=== PATIENT | female | born 1965 | race Caucasian/White ===

== ENCOUNTER → 2019-11-01 13:24 | Outpatient (CLI) | payer OTHER, SELFPAY ==
[2019-11-01 13:13] VITALS: BMI 31.3
--- NOTE | 2019-11-01 13:26 | RAD_ITS ---
STUDY: X-RAY - RIGHT WRIST REASON FOR EXAM: Female, 54 years old. PAIN IN RIGHT WRIST NOT GETTING ANY BETTER. RIGHT WRIST INJURY THIS PAST AUGUST. TECHNIQUE: 3 view(s) of the wrist were obtained. COMPARISON: None. FINDINGS: There is demineralization of the radius and ulna. There is a lucency at the base of the ulnar styloid within the distal radius with surrounding callus formation consistent with likely healing nondisplaced fracture. There is degenerative arthrosis of the radiocarpal articulation. Normal distal radioulnar articulation. Normal carpal bones. Normal carpal articulations. Normal carpometacarpal articulation of the thumb. Normal second through fifth carpometacarpal articulations. Normal visualized metacarpal bones. The soft tissue structures are unremarkable. RAD/Wrist min 3 Views IMPRESSION: Demineralization with likely healing nondisplaced fracture of the distal ulna as above. Electronically Signed: David Nguyen DO at 21:53 EDT , Service support ,
== END ==
PROVIDERS: PCP Internal Medicine; Referring Provider Physician Assistant; Visit Provider Physician Assistant
DX: M25.531 Pain in right wrist (principal)
CPT/HCPCS: 73110

== ENCOUNTER 2020-05-04 20:03 | Emergency (ER) | payer OTHER, SELFPAY ==
[2019-11-01 13:13] VITALS: BMI 31.3
[2020-05-04 20:03] VITALS: BP 145/96; PULSE 57; RESP 16; TEMP 36.4; O2SAT 99; BMI 29.7
--- NOTE | 2020-05-04 20:15 | RAD_ITS ---
STUDY: X-RAY - RIGHT WRIST REASON FOR EXAM: Female, 54 years old. fall, wrist pain TECHNIQUE: 4 view(s) of the wrist were obtained. COMPARISON: None. FINDINGS: Normal visualized distal radius and ulna. Normal radiocarpal articulation. Normal distal radioulnar articulation. Normal carpal bones. Normal carpal articulations. There is degenerative arthrosis of the carpometacarpal articulation of the thumb. Normal second through fifth carpometacarpal articulations. Normal visualized metacarpal bones. The soft tissue structures are unremarkable. There is no demonstrated acute fracture. RAD/Wrist min 3 Views IMPRESSION: No definite acute or significant abnormality seen. Electronically Signed: Jethro Roy MD at 20:35 EDT , Service support ,
--- NOTE | 2020-05-04 20:17 | ED.VISSUMM ---
- ER Visit Summary Date of Service: 05/04/20 Chief Complaint: [Injury to right wrist ] History of Present Illness: The patient is a 54 F [presents to the emergency department after sustaining a fall today. 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 Patient is right-hand dominant. Patient states that she had fractured her wrist in September of last year. Patient denies any other injuries. Patient has history of high cholesterol, PSVT, and SVT.] Physical Examination: [HEENT-PERRLA, EOMI. Cranial nerves II through XII grossly intact. TMs clear. Mucous membranes moist. No adenopathy. Cardiovascular-regular rate and rhythm without murmur or ectopy Lungs-clear to auscultation, chest wall stable without crepitus or subcu emphysema Abdomen-normoactive bowel sounds, soft, nontender, no rebound or rigidity, no peritoneal signs. Extremities-intact ?4, normal range of motion, normal pulses. Right wrist-patient has tenderness in the anatomic snuffbox. Patient has tenderness over the distal radius. No obvious deformity noted. She is neurovascular intact distally. No significant ecchymosis or bruising noted.] Test Results: [X-rays of the right wrist obtained was normal. No evidence of fracture dislocation noted..] Emergency Department Course and Treatment: [Patient was placed in a thumb spica splint] Treatment Plan: [Patient will be placed in a thumb spica splint. She is instructed to ice and elevate the extremity. She is to use ibuprofen or Tylenol for discomfort. Patient to follow-up with her primary care physician or orthopedic surgeon within next 5 to 7 days.] Because she has pain in the anatomic snuffbox I cannot rule out an occult fracture of the scaphoid. Disposition: [Discharged home in stable condition] Impression: [Right wrist sprain-rule out occult scaphoid fracture] This note was generated with [employer] dictation software. It may contain incorrect words, spelling, and punctuation that were not noted in review of the chart prior to signing ED Disposition - Plan for ED Patient: Referrals: Keyana Winchester MD [Primary Care Provider] -
--- NOTE | 2020-05-04 20:44 | ED.DEP ---
ED Disposition - Plan for ED Patient: Instructions: ED Sprain Wrist Referrals: Foster Brunner DO [STAFF PHYSICIAN] - 5-7 Days Keyana Winchester MD [Primary Care Provider] - 5-7 Days
[2020-05-04 21:02] VITALS: PULSE 55; RESP 15; O2SAT 97
== END 2020-05-04 21:02 | disposition home or self-care (01) ==
LOC: ED 20:31
PROVIDERS: Emergency Provider Emergency Medicine; PCP Internal Medicine
DX: S63.501A Unspecified sprain of right wrist, initial encounter (principal); W19.XXXA Unspecified fall, initial encounter; Y93.9 Activity, unspecified; Y92.008 Other place in unspecified non-institutional (private) residence as the place of occurrence of the external cause; Y99.9 Unspecified external cause status; I47.1 Supraventricular tachycardia; E78.00 Pure hypercholesterolemia, unspecified
CPT/HCPCS: 73110; 99283

== ENCOUNTER → 2020-05-16 15:26 | Outpatient (CLI) | payer OTHER, SELFPAY ==
[2020-05-16 14:36] VITALS: BMI 29.7
--- NOTE | 2020-05-16 15:28 | RAD_ITS ---
HISTORY: fell 2 weeks ago, hx of fx ADDITIONAL HISTORY: None provided. EXAMINATION/TECHNIQUE: XR Wrist Min 3 Views Right Number of images including paperwork: 3 COMPARISON: 05/04/2020 and 11/01/2019 FINDINGS: BONES: Slight irregularity of the distal radial articular surface in the region of lucency seen on forearm radiographs, no distinct fracture line seen on wrist radiographs. JOINTS: No subluxation. SOFT TISSUES: No distinct foreign body. Soft tissue swelling. RAD/Wrist min 3 Views IMPRESSION: Slight irregularity of the distal radial articular surface without distinct fracture line. Findings could represent posttraumatic change but subtle nondisplaced fracture is difficult to exclude. at 0237 Reported and signed by: Aminah Short MD Electronically Signed: Aminah Short MD at 2:37 EDT Tel , Service support ,
--- NOTE | 2020-05-16 15:28 | RAD_ITS ---
HISTORY: fell 2 weeks ago, hx of fx ADDITIONAL HISTORY: None provided. EXAMINATION/TECHNIQUE: XR Forearm 2 Views Right Number of images including paperwork: 2 COMPARISON: 05/04/2020 and 11/01/2019 wrist radiographs. No previous forearm radiographs. FINDINGS: BONES: Lucency noted in the distal radial articular surface toward the ulnar aspect on the AP view, not well seen on corresponding wrist radiographs. JOINTS: No subluxation. SOFT TISSUES: No distinct foreign body. RAD/Forearm 2 Views IMPRESSION: Nondisplaced intra-articular right distal radius fracture of uncertain chronicity. at 0235 Reported and signed by: Aminah Short MD Electronically Signed: Aminah Short MD at 2:35 EDT Tel , Service support ,
== END ==
PROVIDERS: PCP Internal Medicine; Referring Provider Nurse Practitioner Family; Visit Provider Nurse Practitioner Family
DX: S69.91XA Unspecified injury of right wrist, hand and finger(s), initial encounter (principal); S59.911A Unspecified injury of right forearm, initial encounter; X58.XXXA Exposure to other specified factors, initial encounter; Y93.9 Activity, unspecified; Y92.9 Unspecified place or not applicable; Y99.9 Unspecified external cause status
CPT/HCPCS: 73090; 73110

== ENCOUNTER → 2020-06-16 | Outpatient (CLI) | payer OTHER, SELFPAY ==
[2020-06-16 08:38] VITALS: BMI 28.6
[2020-06-20 06:24] LABS: HPV APTIMA, High Risk Negative (Negative)
== END | disposition home or self-care (01) ==
LOC: LABSPEC 13:54
PROVIDERS: PCP Internal Medicine; Referring Provider Obstetrics & Gynecology; Visit Provider Obstetrics & Gynecology
DX: Z12.4 Encounter for screening for malignant neoplasm of cervix (principal)
CPT/HCPCS: 87624; 88175; G0145

== ENCOUNTER → 2020-06-23 11:46 | Outpatient (CLI) | payer OTHER, SELFPAY ==
[2020-06-16 08:38] VITALS: BMI 28.6
--- NOTE | 2020-06-23 11:47 | BI_ITS ---
MAMMOGRAPHY - BILATERAL SCREENING REASON FOR EXAM: Female, 54 years old. Routine annual screening examination. PERTINENT HISTORY: Non-contributory. TECHNIQUE: Digital bilateral breast bronson (3D mammographic acquisition) in the CC and MLO projections. 2-D mediolateral oblique (MLO) and craniocaudad (CC) views of both breasts were obtained. CAD: Full Field Digital Mammography with Computer Added Detection was performed. COMPARISON: Comparison is made with prior study dated 08/02/2017. FINDINGS: Breast Composition: There are scattered areas of fibroglandular density. There are no dominant masses or suspicious calcifications. No other significant abnormalities are identified. There has been no significant change since the prior study. BI/SCREEN MAMM (CAD) W/BRONSON BILAT IMPRESSION: Stable bilateral screening mammogram. Yearly follow-up mammogram recommended. (A) ASSESSMENT CATEGORY: BIRADS Category 1: Negative. A letter regarding these results will be sent to the patient by the facility within 30 days. Approximately 10% of breast cancers are not detected by mammography. A normal mammogram should not delay biopsy of a clinically suspicious abnormality. [id number] Electronically Signed: Randell Rock, at 13:48 EST , Service support ,
== END ==
PROVIDERS: PCP Internal Medicine; Referring Provider Obstetrics & Gynecology; Visit Provider Obstetrics & Gynecology
DX: Z12.31 Encounter for screening mammogram for malignant neoplasm of breast (principal)
CPT/HCPCS: 77063; 77067

== ENCOUNTER → 2020-10-09 09:30 | Outpatient (CLI) | payer OTHER, SELFPAY ==
[2020-10-02 10:03] VITALS: BMI 28.8
[2020-10-09 11:28] LABS: AST(SGOT) 13 U/L (15-37); Alanine Aminotransfer ALT/SGPT 15 U/L (13-56); Albumin, Serum 3.7 g/dL (3.2-5.0); Alkaline Phosphatase 86 U/L (45-117); Cholesterol 238 mg/dL (200); Globulin 3.5 g/dL (2.2-4.2); High Density Lipoprotein 77 mg/dL; Protein, Total 7.2 g/dL (6.4-8.2); Triglycerides 90 mg/dL; Very Low Density Lipoprotein 18 mg/dL (5-40)
== END ==
PROVIDERS: PCP Internal Medicine; Referring Provider Internal Medicine Cardiovascular Disease; Visit Provider Internal Medicine Cardiovascular Disease
DX: E78.5 Hyperlipidemia, unspecified (principal); I34.1 Nonrheumatic mitral (valve) prolapse; I47.1 Supraventricular tachycardia
CPT/HCPCS: 36415; 80061; 80076

== ENCOUNTER → 2021-01-07 08:24 | Outpatient (CLI) | payer OTHER, SELFPAY ==
[2020-10-02 10:03] VITALS: BMI 28.8
[2021-01-07 10:48] LABS: AST(SGOT) 13 U/L (15-37); Alanine Aminotransfer ALT/SGPT 15 U/L (13-56); Albumin, Serum 3.5 g/dL (3.2-5.0); Alkaline Phosphatase 87 U/L (45-117); Bilirubin, Direct 0.13 mg/dL (0.00-0.30); Cholesterol 197 mg/dL (200); Globulin 3.1 g/dL (2.2-4.2); High Density Lipoprotein 77 mg/dL; Protein, Total 6.6 g/dL (6.4-8.2); Triglycerides 60 mg/dL; Very Low Density Lipoprotein 12 mg/dL (5-40)
== END ==
PROVIDERS: PCP Internal Medicine; Referring Provider Internal Medicine Cardiovascular Disease; Visit Provider Internal Medicine Cardiovascular Disease
DX: E78.5 Hyperlipidemia, unspecified (principal)
CPT/HCPCS: 36415; 80061; 80076

== ENCOUNTER → 2021-07-02 10:29 | Outpatient (CLI) | payer OTHER, SELFPAY ==
[2021-07-02 12:19] LABS: Absolute Lymphocyte Count 1.48 X10^3/uL (0.83-4.51); Absolute Neutrophil Count 2.5 X10^3/uL (2.0-7.7); Basophil# 0.06 X10^3/uL; Basophil% 1.4 % (0-1); Eosinophil# 0.07 X10^3/uL; Eosinophils% 1.6 % (0-5); Hematocrit 41.3 % (37-47); Hemoglobin 13.5 g/dL (12.0-15.0); Lymphocyte # 1.48 X10^3/ul (0.83-4.51); Lymphocyte % 33.9 % (19-41); Mean Corp Hgb Conc 32.7 g/dL (32-36); Mean Corpuscular Hgb 29.7 pg (27.0-32.0); Mean Platelet Vol. 10.5 fl (6.2-12.0); Monocyte# 0.28 X10^3/uL; Monocyte% 6.4 % (0-10); NRBC Flagged by Analyzer 0 % (0-5); Neutrophil # 2.46 X10^3/uL (2.7-7.7); Neutrophil % 56.2 % (47-70); Platelet Count 225 K/mm3 (150-450); RBC Distribution Width CV 12.8 % (11.6-14.6); RBC Distribution Width SD 42.8 fl (35.1-43.9); Red Blood Count 4.54 M/mm3 (4.2-5.4); White Blood Count 4.4 K/mm3 (4.4-11.0)
[2021-07-02 12:35] LABS: Vitamin D,25 Hydroxy 57.1 ng/mL
[2021-07-02 12:48] LABS: ALB/GLOB Ratio 0.9 RATIO (0.9-2.4); AST(SGOT) 15 U/L (15-37); Alanine Aminotransfer ALT/SGPT 16 U/L (13-56); Albumin, Serum 3.5 g/dL (3.2-5.0); Alkaline Phosphatase 86 U/L (45-117); Anion Gap 6 (5-15); BUN 15 mg/dL (7-18); BUN/Creat Ratio 19.3 RATIO (10-20); Calcium,Total 9.5 mg/dL (8.5-10.1); Chloride 106 mmol/L (98-107); Cholesterol 229 mg/dL (200); Creatinine, Serum 0.78 mg/dL (0.55-1.02); EST Glomerular Filtration Rate 81 mL/min (>60); Est Glom Filt Rate - Afr Amer 98 mL/min (>60); Globulin 3.8 g/dL (2.2-4.2); Glucose 99 mg/dL (74-106); High Density Lipoprotein 81 mg/dL; Protein, Total 7.3 g/dL (6.4-8.2); Sodium Level 140 mmol/L (136-145); Thyroid Stim Hormone (TSH) 2.55 uIU/mL (0.358-3.74); Triglycerides 66 mg/dL; Very Low Density Lipoprotein 13 mg/dL (5-40)
== END ==
LOC: BIMLAB 10:30
PROVIDERS: PCP Internal Medicine; Referring Provider Physician Assistant; Visit Provider Physician Assistant
DX: Z00.00 Encounter for general adult medical examination without abnormal findings (principal); E78.5 Hyperlipidemia, unspecified; I47.1 Supraventricular tachycardia; E55.9 Vitamin D deficiency, unspecified; Z13.220 Encounter for screening for lipoid disorders; Z13.29 Encounter for screening for other suspected endocrine disorder
CPT/HCPCS: 36415; 80053; 80061; 82306; 84443; 85025

== ENCOUNTER 2021-08-26 08:44 | Outpatient (CLI) | payer OTHER, SELFPAY ==
--- NOTE | 2021-08-26 08:46 | BI_ITS ---
MAMMOGRAPHY - BILATERAL SCREENING REASON FOR EXAM: Female, 55 years old. Routine annual screening examination. PERTINENT HISTORY: Non-contributory. TECHNIQUE: Digital bilateral breast bronson (3D mammographic acquisition) in the CC and MLO projections. 2-D mediolateral oblique (MLO) and craniocaudad (CC) views of both breasts were obtained. CAD: Full Field Digital Mammography with Computer Added Detection was performed. COMPARISON: Comparison is made with prior study dated 06/23/2020 and 08/02/2017 FINDINGS: Breast Composition: There are scattered areas of fibroglandular density. There are no dominant masses or suspicious calcifications. Stable small benign-appearing bilateral axillary lymph nodes. No other significant abnormalities are identified. There has been no significant change since the prior study. BI/SCRN MAMM (CAD)W/BRONSON BILAT IMPRESSION: Stable bilateral screening mammogram. Yearly follow-up mammogram recommended. (A) ASSESSMENT CATEGORY: BIRADS Category 2: Benign. A letter regarding these results will be sent to the patient by the facility within 30 days. Approximately 10% of breast cancers are not detected by mammography. A normal mammogram should not delay biopsy of a clinically suspicious abnormality. [id number] Electronically Signed: Randell Rock MD at 9:34 EST , Service support ,
== END 2021-08-26 23:59 | disposition short-term general hospital (02) ==
LOC: OPBI 08:44
PROVIDERS: PCP Internal Medicine; Referring Provider Physician Assistant; Visit Provider Physician Assistant
DX: Z12.31 Encounter for screening mammogram for malignant neoplasm of breast (principal)
CPT/HCPCS: 77063; 77067

== ENCOUNTER 2021-09-01 10:49 | Outpatient (CLI) | payer OTHER, SELFPAY ==
--- NOTE | 2021-09-01 10:53 | US_ITS ---
STUDY: ULTRASOUND OF THE FEMALE PELVIS - COMPLETE REASON FOR EXAM: Female, 55 years old. Pelvic pain. History of fibroids. LMP: The patient is postmenopausal. TECHNIQUE: Transabdominal and Transvaginal TECHNICAL QUALITY: Adequate. COMPARISON: Comparison is made with prior study dated 08/08/2017. FINDINGS: The uterus is anteverted and is in a midline position. The uterus measures 7.1 cm x 7.8 cm x 2.7 cm. Normal uterine cervix. The endometrium measures 4 mm in thickness, and is hyperechoic. There is no demonstrated endometrial mass. Multiple fibroids are seen. A pedunculated fibroid is seen in the left side of the body of the uterus measuring 4.5 signed by 5 cm x 4.8 cm. I.U.D. - The patient does not have an I.U.D. The right ovary is non-visualized. There is a 1.8 cm x 1.5 cm x 1.8 cm solid nodule in the right adnexal region. A small amount of free fluid is seen adjacent to it. The left ovary is non-visualized. There is a moderate amount of fluid in the cul-de-sac. US/Transvaginal Non- IMPRESSION: Multiple uterine fibroids. There is a 1.8 signed by 1.5 cm by 1.8 cm solid nodule seen in the right adnexa. Small amount of fluid is seen surrounding it. Correlation with the CT scan of the pelvis is recommended. Electronically Signed: Randell Rock MD at 12:29 EST , Service support ,
--- NOTE | 2021-09-01 10:53 | US_ITS ---
STUDY: ULTRASOUND OF THE FEMALE PELVIS - COMPLETE REASON FOR EXAM: Female, 55 years old. Pelvic pain. History of fibroids. LMP: The patient is postmenopausal. TECHNIQUE: Transabdominal and Transvaginal TECHNICAL QUALITY: Adequate. COMPARISON: Comparison is made with prior study dated 08/08/2017. FINDINGS: The uterus is anteverted and is in a midline position. The uterus measures 7.1 cm x 7.8 cm x 2.7 cm. Normal uterine cervix. The endometrium measures 4 mm in thickness, and is hyperechoic. There is no demonstrated endometrial mass. Multiple fibroids are seen. A pedunculated fibroid is seen in the left side of the body of the uterus measuring 4.5 signed by 5 cm x 4.8 cm. I.U.D. - The patient does not have an I.U.D. The right ovary is non-visualized. There is a 1.8 cm x 1.5 cm x 1.8 cm solid nodule in the right adnexal region. A small amount of free fluid is seen adjacent to it. The left ovary is non-visualized. There is a moderate amount of fluid in the cul-de-sac. US/Pelvic (Non ) IMPRESSION: Multiple uterine fibroids. There is a 1.8 signed by 1.5 cm by 1.8 cm solid nodule seen in the right adnexa. Small amount of fluid is seen surrounding it. Correlation with the CT scan of the pelvis is recommended. Electronically Signed: Randell Rock MD at 12:29 EST , Service support ,
== END 2021-09-01 23:59 | disposition short-term general hospital (02) ==
PROVIDERS: PCP Internal Medicine; Referring Provider Obstetrics & Gynecology; Visit Provider Obstetrics & Gynecology
DX: D25.9 Leiomyoma of uterus, unspecified (principal)
CPT/HCPCS: 76830; 76856

== ENCOUNTER 2021-10-12 11:39 | Outpatient (CLI) | payer OTHER, SELFPAY ==
--- NOTE | 2021-10-12 19:34 | STRESSREP_ITS ---
Stress Test Report Date: 10-12-2021 Procedure: Exercise tolerance test Indications: Chest pain; PSVT; MVP; hyperlipidemia Consent: Per the patient Procedure: The patient exercised on a Kaushik protocol for 10-minute completing Stage III and 1 minute of Stage IV achieving a peak heart rate of 169 bpm (103% predicted maximal heart rate) with a peak blood pressure 166/82 mmHg and a peak MET capacity of approximately 13 MET's. The baseline ECG demonstrated normal sinus rhythm. The peak exercise ECG demonstrated somatic/motion artifact with no obvious ECG changes. There was an isolated PVC during exercise. The functional capacity was considered good. The patient had no complaint of chest discomfort during exercise or recovery. The examination was discontinued secondary to dyspnea. Impression: 1. Technically adequate (percent predicted maximal heart rate greater than 85%) exercise tolerance test 2. Peak exercise ECG with somatic/motion artifact with no obvious ECG changes 3. There was an isolated PVC during exercise This note was generated with rumr: turn off the lightsation software. It may contain incorrect words, spelling, and punctuation that were not noted in checking the note before signing.
== END 2021-10-12 23:59 | disposition home or self-care (01) ==
PROVIDERS: PCP Internal Medicine; Referring Provider Internal Medicine Cardiovascular Disease; Visit Provider Internal Medicine Cardiovascular Disease
DX: R07.9 Chest pain, unspecified (principal)
CPT/HCPCS: 93017

== ENCOUNTER 2021-11-06 07:49 | Outpatient (CLI) | payer OTHER, SELFPAY ==
--- NOTE | 2021-11-06 07:54 | US_ITS ---
STUDY: ULTRASOUND OF THE FEMALE PELVIS - COMPLETE REASON FOR EXAM: Female, 56 years old. f/u fibroid uterus TECHNIQUE: Endovaginal. Transvaginal US was obtained to better visualized the ovaries. COMPARISON: 09.01.21 FINDINGS: The uterus is anteverted and is in a midline position. The uterus measures 6.7 x 4 point cm. Normal uterine cervix. The endometrium measures 4.2 mm in thickness, and is hyperechoic. There is no demonstrated endometrial mass. Multiple fibroids in the uterus. There are exophytic as well. The fibroids measure 52 x 54 x 51 mm in the lower uterine segment there calcifications measuring 9 mm. I.U.D. - The patient does not have an I.U.D. The right ovary is visualized. The right ovary measures 2 x 1.6 cm. There is no right ovarian cyst or ovarian mass. There is visualized right adnexal calcification measuring 22 x 20 mm. There is normal arterial and normal venous vascularity. The left ovary is visualized. The left ovary measures 1.8 x 1.2 cm. There is no left ovarian cyst or ovarian mass. There is no visualized left adnexal mass or complex lesion. There is normal arterial and normal venous vascularity. There is minimal fluid in the cul-de-sac. Urinary bladder volume is 57 cc. US/Pelvic (Non ) IMPRESSION: Fibroid uterus. There is minimal fluid in the cul-de-sac. Stable right adnexal calcification. Electronically Signed: Enoch Lauren MD at 20:21 EDT ,
--- NOTE | 2021-11-06 07:54 | US_ITS ---
STUDY: ULTRASOUND OF THE FEMALE PELVIS - COMPLETE REASON FOR EXAM: Female, 56 years old. f/u fibroid uterus TECHNIQUE: Endovaginal. Transvaginal US was obtained to better visualized the ovaries. COMPARISON: 09.01.21 FINDINGS: The uterus is anteverted and is in a midline position. The uterus measures 6.7 x 4 point cm. Normal uterine cervix. The endometrium measures 4.2 mm in thickness, and is hyperechoic. There is no demonstrated endometrial mass. Multiple fibroids in the uterus. There are exophytic as well. The fibroids measure 52 x 54 x 51 mm in the lower uterine segment there calcifications measuring 9 mm. I.U.D. - The patient does not have an I.U.D. The right ovary is visualized. The right ovary measures 2 x 1.6 cm. There is no right ovarian cyst or ovarian mass. There is visualized right adnexal calcification measuring 22 x 20 mm. There is normal arterial and normal venous vascularity. The left ovary is visualized. The left ovary measures 1.8 x 1.2 cm. There is no left ovarian cyst or ovarian mass. There is no visualized left adnexal mass or complex lesion. There is normal arterial and normal venous vascularity. There is minimal fluid in the cul-de-sac. Urinary bladder volume is 57 cc. US/Transvaginal Non- IMPRESSION: Fibroid uterus. There is minimal fluid in the cul-de-sac. Stable right adnexal calcification. Electronically Signed: Enoch Lauren MD at 20:21 EDT ,
== END 2021-11-06 23:59 | disposition home or self-care (01) ==
PROVIDERS: PCP Internal Medicine; Referring Provider Obstetrics & Gynecology; Visit Provider Obstetrics & Gynecology
DX: D25.9 Leiomyoma of uterus, unspecified (principal); R93.89 Abnormal findings on diagnostic imaging of other specified body structures
CPT/HCPCS: 76830; 76856

== ENCOUNTER → 2022-07-01 | Outpatient (CLI) | payer OTHER, SELFPAY ==
[2022-07-01 12:34] LABS: Absolute Lymphocyte Count 2.04 X10^3/uL (0.83-4.51); Basophil# 0.06 X10^3/uL; Basophil% 1.3 % (0-1); Eosinophil# 0.08 X10^3/uL; Eosinophils% 1.8 % (0-5); Hemoglobin 13.1 g/dL (12.0-15.0); Lymphocyte # 2.04 X10^3/ul (0.83-4.51); Lymphocyte % 45.5 % (19-41); Mean Corp Hgb Conc 32.8 g/dL (32-36); Mean Corpuscular Hgb 30.1 pg (27.0-32.0); Mean Platelet Vol. 10.5 fl (6.2-12.0); Monocyte# 0.31 X10^3/uL; Monocyte% 6.9 % (0-10); NRBC Flagged by Analyzer 0 % (0-5); Neutrophil # 1.98 X10^3/uL (2.7-7.7); Neutrophil % 44.3 % (47-70); Platelet Count 214 K/mm3 (150-450); RBC Distribution Width CV 12.5 % (11.6-14.6); Red Blood Count 4.35 M/mm3 (4.2-5.4); White Blood Count 4.5 K/mm3 (4.4-11.0)
[2022-07-01 12:59] LABS: ALB/GLOB Ratio 1.1 RATIO (0.9-2.4); AST(SGOT) 11 U/L (15-37); Alanine Aminotransfer ALT/SGPT 15 U/L (13-56); Albumin, Serum 3.6 g/dL (3.2-5.0); Alkaline Phosphatase 85 U/L (45-117); Anion Gap 5 (5-15); BUN 13 mg/dL (7-18); BUN/Creat Ratio 16.2 RATIO (10-20); Calcium,Total 9.6 mg/dL (8.5-10.1); Chloride 108 mmol/L (98-107); Cholesterol 235 mg/dL (200); EST Glomerular Filtration Rate 78 mL/min (>60); Est Glom Filt Rate - Afr Amer 95 mL/min (>60); Globulin 3.4 g/dL (2.2-4.2); Glucose 94 mg/dL (74-106); High Density Lipoprotein 79 mg/dL; Potassium 4.8 mmol/L (3.5-5.1); Sodium Level 142 mmol/L (136-145); Triglycerides 92 mg/dL; Very Low Density Lipoprotein 18 mg/dL (5-40)
== END | disposition home or self-care (01) ==
LOC: BIMLAB 09:20
PROVIDERS: PCP Internal Medicine; Referring Provider Internal Medicine; Visit Provider Internal Medicine
DX: Z00.00 Encounter for general adult medical examination without abnormal findings (principal)
CPT/HCPCS: 36415; 80053; 80061; 85025

== ENCOUNTER → 2023-07-06 | Outpatient (CLI) | payer OTHER, SELFPAY ==
--- NOTE | 2023-07-06 10:44 | RAD_ITS ---
INDICATION: Bilateral Hip Pain EXAMINATION/TECHNIQUE: X-RAY - XR Hips Bilateral with Pelvis when performed; 2 Views COMPARISON: FINDINGS: PELVIC BONES: No displaced fracture, destructive or sclerotic lesions. Note that overlapping bowel shadows may however obscure fine detail. Sacroiliac joints are unremarkable. No widening of the pubic symphysis. HIPS: No acute abnormalities. Soft tissue calcifications seen just cephalad to the right greater trochanter consistent with probable chronic trochanteric bursitis. The articular structures are unremarkable. No displaced fracture seen in this frontal view. SOFT TISSUES: No soft tissue swelling or gas. RAD/Hips B/L min 2 views w/ Pelvis IMPRESSION: No acute fracture or dislocation. Findings consistent with chronic right trochanteric bursitis. Electronically Signed: Jethro Roy MD at 22:59 EST ,
[2023-07-06 12:37] LABS: Absolute Lymphocyte Count 1.54 X10^3/uL (0.83-4.51); Absolute Neutrophil Count 2.2 X10^3/uL (2.0-7.7); Basophil# 0.06 X10^3/uL; Basophil% 1.4 % (0-1); Eosinophil# 0.06 X10^3/uL; Eosinophils% 1.4 % (0-5); Hematocrit 38.8 % (37-47); Hemoglobin 12.7 g/dL (12.0-15.0); Lymphocyte # 1.54 X10^3/ul (0.83-4.51); Lymphocyte % 36.7 % (19-41); Mean Corp Hgb Conc 32.7 g/dL (32-36); Mean Corpuscular Volume 91.5 fL (81-99); Mean Platelet Vol. 10.4 fl (6.2-12.0); Monocyte# 0.35 X10^3/uL; Monocyte% 8.3 % (0-10); NRBC Flagged by Analyzer 0 % (0-5); Neutrophil # 2.18 X10^3/uL (2.7-7.7); Platelet Count 230 K/mm3 (150-450); Red Blood Count 4.24 M/mm3 (4.2-5.4); White Blood Count 4.2 K/mm3 (4.4-11.0)
[2023-07-06 12:59] LABS: ALB/GLOB Ratio 1.1 RATIO (0.9-2.4); AST(SGOT) 14 U/L (15-37); Alanine Aminotransfer ALT/SGPT 12 U/L (13-56); Albumin, Serum 3.6 g/dL (3.2-5.0); Alkaline Phosphatase 84 U/L (45-117); Anion Gap 3 (5-15); BUN 16 mg/dL (7-18); BUN/Creat Ratio 21.4 RATIO (10-20); Calcium,Total 9.3 mg/dL (8.5-10.1); Chloride 110 mmol/L (98-107); Cholesterol 224 mg/dL (200); Creatinine, Serum 0.75 mg/dL (0.55-1.02); EST Glomerular Filtration Rate 84 mL/min (>60); Est Glom Filt Rate - Afr Amer 102 mL/min (>60); Globulin 3.3 g/dL (2.2-4.2); Glucose 101 mg/dL (74-106); High Density Lipoprotein 79 mg/dL; Potassium 3.9 mmol/L (3.5-5.1); Protein, Total 6.9 g/dL (6.4-8.2); Sodium Level 141 mmol/L (136-145); Triglycerides 86 mg/dL; Very Low Density Lipoprotein 17 mg/dL (5-40)
== END | disposition home or self-care (01) ==
PROVIDERS: PCP Internal Medicine; Referring Provider Internal Medicine; Visit Provider Internal Medicine
DX: Z00.00 Encounter for general adult medical examination without abnormal findings (principal); M25.551 Pain in right hip; M25.552 Pain in left hip
CPT/HCPCS: 36415; 73521; 80053; 80061; 85025

== ENCOUNTER 2023-10-25 10:52 | Outpatient (CLI) | payer OTHER, SELFPAY ==
--- OUTSIDE RECORDS SUMMARY | 2023-10-25 11:24 | XMS RPT_ITS | CCD ---
Author Name Unknown Address [address] [place] [address] Organization [facility] Care Team Providers Care Nutrition Services Manager Name Role Phone Trinity Curtis Unavailable Unavailable Rylee Winchester Unavailable Unavailable Medications Completed/Discontinued Medications Medication Drug Class(es) Dates Sig (Normalized) Sig (Original) loratadine 10 mg oral capsule (1 source) Start: 02-07-2019 take 1 capsule by mouth once daily as needed Loratadine 10 MG Oral Capsule TAKE 1 CAPSULE Daily as needed for itching Quantity: 10 Refills: 0 Trinity Curtis PA-C Start : 07-Feb-2019 Active 24 hr metoprolol succinate 25 mg extended release oral tablet (1 source) beta-Adrenergic Yessi Start: 08-02-2017 take 1 tablet by mouth once daily Metoprolol Succinate ER 25 MG Oral Tablet Extended Release 24 Hour TAKE 1 TABLET EVERY DAY Quantity: 30 Refills: 0 Start : 02-Aug-2017 Active predniSONE 10 mg oral tablet (1 source) Start: 02-07-2019 take 4 tablets by mouth once daily, then take 3 tablets by mouth once daily, then take 2 tablets by mouth once daily, then take 1 tablet by mouth once daily predniSONE 10 MG Oral Tablet 4 tablets once a day for 3 days, take 3 tablets once a day for 3 days, then 2 tablets once a day for 3 days, then 1 tablet once a day for 3 Quantity: 30 Refills: 0 Trinity Curtis PA-C Start : 07-Feb-2019 Active Problems Problem Classification Problem Date Documented Da te Episodic/Chronic Allergic reactions (1 source) Contact dermatitis due to plants, except food; Translations: [Contact dermatitis due to plants, except food, unspecified contact dermatitis type] Episodic Results Test Name Value Interpretation Reference Range Facil ity Vital Signs Date Time Vital Sign Value Performing Clinician Faci lity 02-07-2019 20:17-0400 Body Temperature 97.7 [degF] Trinity Curtis [facility] Work Phone: 02-07-2019 20:17-0400 Body weight 88.45 kg Trinity Curtis [facility] Work Phone: 02-07-2019 20:17-0400 BP Diastolic 85 mm[Hg] Trinity Curtis [facility] Work Phone: 02-07-2019 20:17-0400 BP Systolic 134 mm[Hg] Trinity Curtis [facility] Work Phone: 02-07-2019 20:17-0400 Pulse (Heart Rate) 60 /min Trinity Curtis [facility] Work Phone: 02-07-2019 20:17-0400 Pulse Oximetry 97 % Trinity Curtis [facility] Work Phone: 02-07-2019 20:17-0400 Respiratory Rate 14 /min Trinity Curtis [facility] Work Phone: 02-07-2019 20:17-0400 0 1 Trinity Curtis [facility] Work Phone: Procedures Date Procedure Procedure Detail Performing Clinician Start: 02-07-2019 Follow-up visit Social History Date Type Detail Facility NEGATED: Highlighted row - - [facility] Work Phone: Functional Status Date Assessment Result Facility NEGATED: Highlighted row Functional performance Functional status health issues are not documented Disease [facility] Work Phone: Mental Status Date Assessment Result Facility NEGATED: Highlighted row Cognitive function [Interpretation] Cognitive status health issues are not documented Disease [facility] Work Phone: Progress note 08-16-2021 Note Date & Type Note Facility 08-16-2021 Note HNO ID: [id number] Author: Manny Fletcher APRN.[facility] Service: ? Author Type: Nurse Practitioner Type: Progress Notes Filed: 08/16/2021 11:20 AM Note Text: Subjective HPI Nontoxic-appearing female presents urgent care chief complaint COVID-19 concerns. Duration of symptoms 3 days. Associated symptoms cough fever nasal congestion. Patient states symptoms are very mild. Patient states she was in direct contact with individual who tested positive for COVID-19. States that she was wearing masks the other individual was not. Length of exposure less than 15 minutes. Patient denies history of COVID-19. Is not vaccinated. Has not used any OTC medications used. Denies any high fever productive cough chest pain shortness of breath pleuritic pain hemoptysis nausea vomiting abdominal pain headaches dizziness change in bowel or bladder habits. Past medical history prescription medication use allergies reviewed. .Patient presents with: Exposure: x 3 days, slight cough, fever and nasal congestion PAST MEDICAL HISTORY Diagnosis Date - High cholesterol - NONE PAST SURGICAL HISTORY Procedure Laterality Date - NONE ALLERGIES Patient has no known allergies. MEDICATIONS metoprolol succinate ER (TOPROL XL) 25 mg 24 hr tablet Take 1 (ONE) TABLET BY MOUTH EVERY DAY doxycycline hyclate (VIBRAMYCIN) 100 mg capsule Take 100 mg by mouth twice daily. cephALEXin (KEFLEX) 500 mg capsule Take 500 mg by mouth three times daily. predniSONE 10 mg tablet Take 4 tabs daily for 3 days, then 2 tabs daily for 3 days, then 1 tab daily for 3 days with food. FAMILY HISTORY Problem Relation Age of Onset - Cancer Mother lung - Cancer Father throat - COPD Maternal Grandfather - Heart Paternal Grandmother [place] - Heart Father Murmur Social History Tobacco Use - Smoking status: Never Smoker - Smokeless tobacco: Never Used Substance Use Topics - Alcohol use: Yes Comment: rare - Drug use: No BP 124/80 Pulse 70 Temp 36.7 ?C (98.1 ?F) Resp 16 Wt 83.9 kg (185 lb) LMP 12/17/2010 SpO2 99% Review of Systems Constitutional: Positive for malaise/fatigue. Negative for chills and fever. HENT: Positive for congestion. Negative for ear discharge, ear pain, sinus pain and sore throat. Eyes: Negative for blurred vision, pain, discharge and redness. Respiratory: Positive for cough. Negative for hemoptysis, sputum production, shortness of breath, wheezing and stridor. Cardiovascular: Negative for chest pain. Gastrointestinal: Negative for abdominal pain, diarrhea, nausea and vomiting. Musculoskeletal: Positive for myalgias. Skin: Negative for itching and rash. Neurological: Negative for dizziness and headaches. Objective Physical Exam Constitutional: General: She is not in acute distress. Appearance: She is not diaphoretic. HENT: Head: Normocephalic. Nose: Congestion present. Mouth/Throat: Mouth: Mucous membranes are moist. Pharynx: Oropharynx is clear. No oropharyngeal exudate or posterior oropharyngeal erythema. Eyes: Conjunctiva/sclera: Conjunctivae normal. Pupils: Pupils are equal, round, and reactive to light. Cardiovascular: Rate and Rhythm: Normal rate and regular rhythm. Heart sounds: Normal heart sounds. Pulmonary: Effort: Pulmonary effort is normal. No tachypnea, accessory muscle usage or respiratory distress. Breath sounds: Normal breath sounds. No stridor. Abdominal: Palpations: Abdomen is soft. Tenderness: There is no abdominal tenderness. Musculoskeletal: Cervical back: Normal range of motion and neck supple. No rigidity or tenderness. Lymphadenopathy: Cervical: No cervical adenopathy. Skin: General: Skin is warm and dry. Neurological: Mental Status: She is alert and oriented to person, place, and time. ASSESSMENT/PLAN: 1. Viral illness - ICD9: 079.99, ICD10: B34.9 - COVID WITH FLUA+B, ROUTINE COVID-19 test ordered results pending alternative diagnosis discussed home quarantining recommended. Patient was educated on supportive therapies. Patient will follow up with primary care provider as needed. Patient was instructed to immediately proceed to emergency room for any new, worsening, or symptoms lasting longer than anticipated. The patient's clinical presentation is otherwise unremarkable at this time. Based on exam and clinical finding, the patient is stable for discharge. Plan of care was discussed with patient. Patient verbalizes understanding and agrees to plan of care. This note was generated using ZENT software. It may contain errors in wording, punctuation, or spelling. Manny Fletcher APRN.[facility] Summary Purpose Family History No Family History Records FoundNo Family History Records Found Advance Directives No Advanced Directives Records FoundNo Advanced Directives Records Found Additional Source Comments INFORMATION SOURCE (unrecogn ized section and content) DATE CREATED AUTHOR AUTHOR'S ORGANIZ ATANTHONY 11/12/2021 [facility] FOR RECORDS PERTAINING TO PATIENTS WHO ARE OR HAVE BEEN ENROLLED IN A CHEMICAL DEPENDENCY/SUBSTANCEABUSE PROGRAM, SOME INFORMATION MAY BE OMITTED. This clinical summary was aggregated from multiple sources. Caution should be exercised in using it in the provision of clinical care. This summary normalizes information from multiple sources, and as a consequence, information in this document may materially change the coding, format and clinical context of patient data. In addition, data may be omitted in some cases. CLINICAL DECISIONS SHOULD BE BASED ON THE PRIMARY CLINICAL RECORDS. [facility] [employer] provides no warranty or guarantee of the accuracy or completeness of information in this document.
== END 2023-10-25 23:59 | disposition home or self-care (01) ==
LOC: BIMLAB 10:52
PROVIDERS: PCP Internal Medicine; Visit Provider Nurse Practitioner
DX: R05.9 Cough, unspecified (principal)
CPT/HCPCS: 87631

== ENCOUNTER 2024-05-13 09:23 | Emergency (ER) | payer OTHER, SELFPAY ==
[2024-05-13 09:23] VITALS: BP 176/92; PULSE 53; RESP 14; TEMP 37.1; O2SAT 96; BMI 31.6
--- NOTE | 2024-05-13 09:35 | RAD_ITS ---
INDICATION: pain after fall EXAMINATION/TECHNIQUE: X-RAY - RIGHT XR Forearm 2 Views 2 VIEWS COMPARISON: May 16, 2020 FINDINGS: SOFT TISSUES: No soft tissue swelling or gas. No radiopaque foreign body. BONES/JOINTS: No acute fracture or subluxation.. Normal alignment. Preservation of the joint space.. No sclerotic or destructive changes observed. RAD/Forearm 2 Views IMPRESSION: No acute osseous injury. Electronically Signed: Franci Aquino MD at 10:43 EDT ,
--- NOTE | 2024-05-13 09:36 | EX.ED.UPPERE ---
HPI History of Present Illness Chief Complaint: Upper Extremity Injury Narrative Narrative: Patient is a 58-year-old female with past medical history of hyperlipidemia, paroxysmal SVT who presents to the emerged part with chief complaint of right hand and wrist pain. Patient states that she was out walking this morning when she tripped over a rock and she attempted to catch herself when noted that her hand bent backwards. Patient states that she had pain she did not hit her head she did not pass out she remembers entire event. Patient denies any chest pain shortness of breath lightheadedness dizziness prior to the fall states that she simply tripped over a rock. Patient rates her pain a 9 out of 10 currently. Patient states that she is unsure when her last tetanus shot but states that it should be in the record. [facility] Medical History Bilateral hip pain Colon cancer screening [facility] care COVID-19 Chest pain, unspecified Arrhythmia HLD (hyperlipidemia) Paroxysmal supraventricular tachycardia Nonrheumatic mitral valve prolapse Supraventricular tachycardia Home Medications ?Medication ?Instructions ?Recorded ?Last Taken ?Type ferrous sulfate 324 mg (65 mg 324 mg PO DAILY 09/24/19 Unknown History iron) tablet,delayed release cholecalciferol (vitamin D3) 125 125 mcg PO DAILY 10/02/20 Unknown History mcg (5,000 unit) capsule metoprolol succinate 25 mg 25 mg PO QDAY #90 tabs 12/27/23 Unknown Rx tablet,extended release 24 hr (Toprol XL) mecobalamin (vitamin B12) 1,000 1,000 mcg PO .QOD 04/19/24 Unknown History mcg chewable tablet Allergy/AdvReac Type Severity Reaction Status Date / Time No Known Allergies Allergy Verified 05/13/24 09:24 Family History Mother Cancer lung Colon polyps Father Cancer throat Sister Colon polyps Surgical History H/O sigmoidoscopy (~1999) Social History household members: spouse current occupational status: employed Smoking Status: Never smoker second hand exposure: No alcohol intake: never substance use type: does not use caffeine: No what type of physical activity do you participate in: walking frequency: 5-6 times per week seatbelt use: always do you feel safe at home: Yes additional social history: [place]- Disabled ROS ROS ED ROS Narrative Constitutional: Denies headache, lightness, dizziness Eyes: Denies change in vision Cardiovascular: Denies chest pain or palpitations Respiratory: Denies coughing wheezing shortness of breath Abdomen: Denies abdominal pain : Denies any urinary symptoms Neurological: Denies numbness, does come tingling Musculoskeletal: Complaint of right hand and wrist pain as noted above denies any other pain Skin: Notes that she has a small abrasion noted to her right hand EXAM Physical Exam Narrative Exam Narrative: General: Patient lying in bed rest comfortably did not appear to be in acute distress Head: Atraumatic, normocephalic Eyes: PERRL bilateral, EOMI bilateral, no conjunctival injection noted Neck: Soft, supple, trach midline Cardiovascular: Patient was bradycardic with a regular rhythm no murmurs gallops rubs noted Respiratory: Clear to auscultation bilaterally Abdomen: Soft, nondistended, nontender to palpation Musculoskeletal: Tenderness palpation of the dorsal aspect of her right hand. All of the bony prominences joints taken through full range of motion no pain elicited Extremities: Radial pulses +2/4 in the bilateral upper extremities, patient was able to give me okay sign thumbs up and oppose her thumb to her pinky. Radial pulses +2/4 in the bilateral upper extremities Neurological: Patient following commands knew that she was at [facility] the year is 2023. Sensation grossly intact in the median, ulnar and radial nerve distributions bilaterally Skin: Warm, dry, patient with superficial abrasion noted to the dorsal aspect of her right pinky no active bleeding noted Const Vital Signs: 05/13/24 09:23 Temperature 98.8 F Temperature Source Oral Pulse Rate 53 L Respiratory Rate 14 Blood Pressure 176/92 H Blood Pressure Mean 120 Pulse Ox 96 Oxygen Delivery Method Room Air MDM MDM MDM Narrative Medical decision making narrative: Patient is a 58-year-old female who presented to the emergency department chief complaint of mechanical fall right hand and wrist pain. Patient will have a workup performed here on the differential diagnose includes but limited to metacarpal fractures, distal radius fracture, ulnar fracture, musculoskeletal strain. Once workup is obtained reviewed she will be reevaluated. Patient is requesting Tylenol for pain control. Discharge Plan Triage Chief Complaint: Upper Extremity Injury ED Provider: Thony Forrest Dx/Rx/DC Orders Prescriptions: No Action ferrous sulfate 324 mg (65 mg iron) tablet,delayed release (DR/EC) 324 mg PO DAILY cholecalciferol (vitamin D3) 125 mcg (5,000 unit) capsule 125 mcg PO DAILY mecobalamin (vitamin B12) 1,000 mcg tablet,chewable 1,000 mcg PO .QOD metoprolol succinate [Toprol XL] 25 mg tablet extended release 24 hr 25 mg PO QDAY Qty: 90 3RF Primary Care Provider: Keyana Winchester Referrals: Keyana Winchester MD [Primary Care Provider] - Print Language: Wolof
--- NOTE | 2024-05-13 10:10 | RAD_ITS ---
INDICATION: pain after fall EXAMINATION/TECHNIQUE: X-RAY - RIGHT XR Hand Min 3 Views 3 VIEWS COMPARISON: Right wrist dated June 04, 2020 FINDINGS: SOFT TISSUES: No soft tissue swelling or gas. No radiopaque foreign body. BONES/JOINTS: No acute fracture or subluxation.. Normal alignment. Preservation of the joint space.. No sclerotic or destructive changes observed. RAD/Hand Min 3 Views IMPRESSION: No acute osseous injury. Electronically Signed: Franci Aquino MD at 10:41 EDT ,
[2024-05-13] MEDS: Acetaminophen 500 MG Tablet 1000 MG PO (10:31)
--- NOTE | 2024-05-13 10:56 | ED.RN ---
Late seeing this patient r/t multiple stroke alerts w/ busy ED
--- NOTE | 2024-05-13 11:08 | EX.ED.UPPERE ---
HPI History of Present Illness Chief Complaint: Upper Extremity Injury Narrative Narrative: This document was accidentally created see the other 1 for details. PFSH PFSH Medical History Bilateral hip pain Colon cancer screening [facility] COVID-19 Chest pain, unspecified Arrhythmia HLD (hyperlipidemia) Paroxysmal supraventricular tachycardia Nonrheumatic mitral valve prolapse Supraventricular tachycardia Home Medications ?Medication ?Instructions ?Recorded ?Last Taken ?Type ferrous sulfate 324 mg (65 mg 324 mg PO DAILY 09/24/19 Unknown History iron) tablet,delayed release cholecalciferol (vitamin D3) 125 125 mcg PO DAILY 10/02/20 Unknown History mcg (5,000 unit) capsule metoprolol succinate 25 mg 25 mg PO QDAY #90 tabs 12/27/23 Unknown Rx tablet,extended release 24 hr (Toprol XL) mecobalamin (vitamin B12) 1,000 1,000 mcg PO .QOD 04/19/24 Unknown History mcg chewable tablet Allergy/AdvReac Type Severity Reaction Status Date / Time No Known Allergies Allergy Verified 05/13/24 09:24 Family History Mother Cancer lung Colon polyps Father Cancer throat Sister Colon polyps Surgical History H/O sigmoidoscopy (~1999) Social History household members: spouse current occupational status: employed Smoking Status: Never smoker second hand exposure: No alcohol intake: never substance use type: does not use caffeine: No what type of physical activity do you participate in: walking frequency: 5-6 times per week seatbelt use: always do you feel safe at home: Yes additional social history: [place]- Disabled EXAM Physical Exam Const Vital Signs: 05/13/24 09:23 Temperature 98.8 F Temperature Source Oral Pulse Rate 53 L Respiratory Rate 14 Blood Pressure 176/92 H Blood Pressure Mean 120 Pulse Ox 96 Oxygen Delivery Method Room Air MDM MDM MDM Narrative Medical decision making narrative: This document was accidentally created desire to have 1 made and signed for this patient see the other document for details Radiography Diagnostic Testing: Clinical Impression(s) from Imaging Studies Forearm X-Ray 05/13/24 09:35 IMPRESSION: No acute osseous injury. Electronically Signed: Franci Aquino MD at 10:43 EDT , Hand X-Ray 05/13/24 10:10 IMPRESSION: No acute osseous injury. Electronically Signed: Franci Aquino MD at 10:41 EDT , Discharge Plan Triage Chief Complaint: Upper Extremity Injury ED Provider: Thony Forrest Dx/Rx/DC Orders Clinical Impression: Right wrist sprain Instructions: ED Wrist Sprain Prescriptions: No Action ferrous sulfate 324 mg (65 mg iron) tablet,delayed release (DR/EC) 324 mg PO DAILY cholecalciferol (vitamin D3) 125 mcg (5,000 unit) capsule 125 mcg PO DAILY mecobalamin (vitamin B12) 1,000 mcg tablet,chewable 1,000 mcg PO .QOD metoprolol succinate [Toprol XL] 25 mg tablet extended release 24 hr 25 mg PO QDAY Qty: 90 3RF Primary Care Provider: Keyana Winchester Referrals: Keyana Winchester MD [Primary Care Provider] - Activity Restrictions/Additional Instructions: Follow-up your primary care physician outpatient setting. Return with worsening symptoms or other concerns. Ice elevate use removable wrist splint at home as needed. Rotate Tylenol and ibuprofen [id number] for pain control. Print Language: Kiswahili Disposition Disposition: Home, Self Care
== END 2024-05-13 11:26 | disposition home or self-care (01) ==
PROVIDERS: Emergency Provider Emergency Medicine; PCP Internal Medicine; Visit Provider Emergency Medicine
DX: S63.91XA Sprain of unspecified part of right wrist and hand, initial encounter (principal); W18.09XA Striking against other object with subsequent fall, initial encounter; E78.5 Hyperlipidemia, unspecified
CPT/HCPCS: 73090; 73130; 99282

== ENCOUNTER 2024-06-13 08:07 | Day surgery (SDC) | payer OTHER, SELFPAY ==
--- NOTE | 2024-06-13 08:17 | PCM.PRE.AN2 ---
ASA Classification* ASA Classification ASA Classification: 2 Assessment & Plan Anesthesia* Anesthesia Assessment Anesthesia Assessment: Discussed sedation and/or anesthesia options, risks, benefits, and alternatives with patient/parents/legal guardian/POA. Questions invited. The patient/parents/legal guardian/POA seems to understand and agrees to proceed with anesthesia plan. Reviewed the physical assessment, medical history, allergy history and patient home medications list prior to surgery/procedure/anesthetic and documented any changes. Performed airway and anesthesia risk assessments. Anesthesia Type Anesthesia Type: MAC Anesthesia Focused Assessment* Airway Assessment Mouth opens: >3 cm Mallampati Score: II Focused Labs Anesthesia Preop lab: CBC WBC 4.2 K/mm3 (4.4-11.0) L 07/06/23 10:16 RBC 4.24 M/mm3 (4.2-5.4) 07/06/23 10:16 Hgb 12.7 g/dL (12.0-15.0) 07/06/23 10:16 Hct 38.8 % (37-47) 07/06/23 10:16 Plt Count 230 K/mm3 (150-450) 07/06/23 10:16 CHEMISTRY Potassium 3.9 mmol/L (3.5-5.1) 07/06/23 10:16 Sodium 141 mmol/L (136-145) 07/06/23 10:16 BUN 16 mg/dL (7-18) 07/06/23 10:16 Creatinine 0.75 mg/dL (0.55-1.02) 07/06/23 10:16 Glucose 101 mg/dL (74-106) 07/06/23 10:16 TSH 2.55 uIU/mL (0.358-3.74) 07/02/21 10:30 COAG Pre-Assessment Diagnosis/Proposed Procedure Planned Operative Procedure(s): CSCOPE OA Anesthesia History 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 When Was Last Pacemaker Check QUESTION #4 FULL TEXT: You/Your Family Experience fever (hyperthermia) with Anesthesia Last Oral Intake Last Oral intake: Last Oral Intake NPO since Meds taken in AM with sips of water? 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 Female Yes 06/12/24 09:41 HX of Motion Sickness Yes 06/12/24 09:41 HX of N/V After Surgery No 06/12/24 09:41 Non-Smoker Yes 06/12/24 09:41 Duration of Surgery greater No 06/12/24 09:41 than 60 minutes Number of Risk Factors 3 06/12/24 09:41 PONV Score Moderate Risk 06/12/24 09:41 Height & Weight Height & Weight: Anesthesia: Height & Weight Height 5 ft 6 in 05/13/24 09:23 Respiratory Assessment Respiratory Assessment - book jacket cover machine operator: Respiratory Tract Infection Hx - 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 Has anyone observed you stop Yes 06/12/24 09:41 breathing during sleep? STOP Results Positive 06/12/24 09:41 QUESTION #5 FULL TEXT : Do you snore loudly (louder than talking or can be heard through closed doors)? 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 Specify any problems Hx of Preganancy in last 3 No 06/12/24 09:41 Months Nurse Filling Out Transfusion DSCHRIBER 06/12/24 09:41 & Questions: Date: 06/12/24 06/12/24 09:41 Time: 09:43 06/12/24 09:41 Patient unable to answer at this time (ie. 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 jacket cover machine operator Hx Now No 06/12/24 09:41 Gestational Age (in weeks): EDC: Hx Hx Para Hx Section SAB No 06/12/24 09:41 [facility] Medical History Loss of hearing Wears glasses Post-menopausal Arthritis Low iron High cholesterol Heartburn Non-smoker Leg cramps History of echocardiogram History of stress test Cardiology follow-up encounter Bilateral hip pain Colon cancer screening Preventative health care COVID-19 Chest pain, unspecified Arrhythmia HLD (hyperlipidemia) Paroxysmal supraventricular tachycardia Nonrheumatic mitral valve prolapse Supraventricular tachycardia Home Medications ?Medication ?Instructions ?Recorded ?Last Taken ?Type ferrous sulfate 324 mg (65 mg 324 mg PO DAILY 09/24/19 05/15/24 History iron) tablet,delayed release cholecalciferol (vitamin D3) 125 125 mcg PO DAILY 10/02/20 Unknown History mcg (5,000 unit) capsule metoprolol succinate 25 mg 25 mg PO QDAY #90 tabs 12/27/23 Unknown Rx tablet,extended release 24 hr (Toprol XL) mecobalamin (vitamin B12) 1,000 1,000 mcg PO .QOD 04/19/24 Unknown History mcg chewable tablet Allergy/AdvReac Type Severity Reaction Status Date / Time No Known Allergies Allergy Verified 06/12/24 09:40 Family History Mother Cancer lung Colon polyps Father Cancer throat Sister Colon polyps Surgical History H/O sigmoidoscopy (~1999) Social History household members: spouse current occupational status: employed Smoking Status: Never smoker second hand exposure: No alcohol intake: never substance use type: does not use caffeine: No what type of physical activity do you participate in: walking frequency: 5-6 times per week seatbelt use: always do you feel safe at home: Yes additional social history: [place]- Disabled Review of Systems (Anesthesia) ROS Narrative System reviewed and no additional complaints, except as documented.
--- OUTSIDE RECORDS SUMMARY | 2024-06-13 08:29 | XMS RPT_ITS | CCD ---
Author Organization [facility] Care Team Providers Care Crts Name Role Phone Trinity Curtis Unavailable Unavailable [...] Results Test Name Value Interpretation Reference Range Yon Maldonado 08-16-2021 CNOV Office Visit (UCWSTR ) MIKE WOODS ([id number]) 1965 F Date Time Provider Department 08/16/21 10:15 AM JUAN MANUEL FLETCHER During your visit today, we recorded the following information about you: Temperature Pulse Respiration Blood pressure 98.1 degrees 70/minute 16/minute 124/80 Weight 83.9 kg Juan Manuel Fletcher, SPECIAL TESTER.CREDIT VERIFIER 08/16/2021 11:20 AM Signed Subjective HPI Nontoxic-appearing female presents urgent care [...] COPD Maternal Grandfather - Heart Paternal Grandmother [place] - Heart Father Murmur Social History Tobacco [...] of care. This note was generated using [employer] software. It may contain errors in wording, punctuation, or spelling. Juan Manuel Fletcher APRN.ED [place] (more content not included)... Normal [facility] COVID w FLU A+B [place] 08-16 Influenza A PCR Negative Normal [facility] Comment on above: Performed By: #### COVFLU #### [place] [address] Influenza B PCR Negative Normal [facility] Comment on above: Performed By: #### COVFLU #### [place] [address] SARS-CoV-2 (COVID-19) RNA MILTON+probe Ql (Unsp spec) UPPER RESPIRATORY TRACT SWAB Normal [facility] Comment on above: Performed By: #### COVFLU #### [place] [address] SARS-CoV-2 (COVID-19) RNA MILTON+probe Ql (Unsp spec) Negative for COVID19 (SARS CoV2) by RT-PCR or equivalent method. Normal Negative for COVID19 (SARS CoV2) by RT-PCR or equivalent method. [facility] Comment on above: Result Comment: This test was developed and its performance characteristics determined by [facility] [place]. This test has been authorized by FDA under an Emergency Use Authorization (EUA). This test has been validated in accordance with the FDA's Guidance Document Policy for Diagnostics Testing in Laboratories Certified to Perform High Complexity Testing under CLIA prior to Emergency use Authorization for Coronavirus Disease 2019 during the Public Health Emergency issued on October 20, 2019. Test performed by [facility], [facility] [place], [address] [place] [address]. Performed By: #### C OVFLU #### [facility] [address] [place], [place] [address] Vital Signs Date Time Vital Sign Value Performing Clinician Renny hernandez 02-07-2019 20:17-0400 Body Temperature 97.7 [degF] Trinity Curtis [facility] Work Phone: 02-07-2019 20:17-0400 Body weight 88.45 kg Trinity Curtis [facility] Work Phone: 02-07-2019 20:17-0400 BP Diastolic 85 mm[Hg] Trinity Curtis [facility] Work Phone: 02-07-2019 20:17-0400 BP Systolic 134 mm[Hg] Trinity Curtis [facility] Work Phone: 02-07-2019 20:17-0400 Pulse (Heart Rate) 60 /min Trinity Curtis [facility] Work Phone: 02-07-2019 20:17-0400 Pulse Oximetry 97 % Trinity Curtis [facility] Work Phone: 02-07-2019 20:17-0400 Respiratory Rate 14 /min Trinity Curtis [facility] Work Phone: 02-07-2019 20:17-0400 0 1 Trinity Curtis [facility] Work Phone: Comment on above: Pain Scale Procedures Date Procedure Procedure Detail Performing Clinician Start: 02-07-2019 Follow-up visit Social History Date Type Detail Facility NEGATED: Highlighted row - - [facility] Work Phone: Functional Status Date Assessment Result Facility NEGATED: Highlighted row Functional performance Functional status health issues are not documented Disease [facility] Work Phone: Mental Status Date Assessment Result Facility NEGATED: Highlighted row Cognitive function [Interpretation] Cognitive status health issues are not documented Disease [facility] Work Phone: Progress note 08-16-2021 Note Date & Type Note Facility 08-16-2021 Note HNO ID: [id number] Author: Juan Manuel Fletcher APRN.CREDIT VERIFIER Service: ? Author Type: Nurse Practitioner Type: [...] COPD Maternal Grandfather - Heart Paternal Grandmother [place] - Heart Father Murmur Social History Tobacco [...] of care. This note was generated using [employer] software. It may contain errors in wording, punctuation, or spelling. Juan Manuel Fletcher APRN.[facility] Summary Purpose Family History No Family History Records FoundNo Family History Records Found Advance Directives No Advanced Directives Records FoundNo Advanced Directives Records Found Additional Source Comments INFORMATION SOURCE (unrecogn ized section and content) DATE CREATED AUTHOR 02/07/2019 Touchworks DATE CREATED AUTHOR AUTHOR'S EDWIN MCKNIGHT 11/12/2021 [facility] FOR RECORDS PERTAINING TO PATIENTS WHO ARE [...] BE BASED ON THE PRIMARY CLINICAL RECORDS. [facility]. provides no warranty or guarantee of the accuracy or completeness of information in this document.
[2024-06-13 08:33] VITALS: BP 128/81; PULSE 65; RESP 18; TEMP 36.6; O2SAT 98; BMI 30.2
--- NOTE | 2024-06-13 09:15 | COLBX_PTH ---
PATHOLOGY RESULTS PATIENT: MIKE WOODS LOC: EN U#:[id number] AGE/SX: 58/F ROOM: RE06/13/[address]: Dr. Shaina Hernández MD : 1965 BED: DIS: 06/13/2024 SPEC #: [id number] RECD: 06/13/24 13:22 STATUS: ROB REQ #: [id number] SHON: 06/13/24 09:[address]: Shaina Hernández DEPT: SURGICAL PATHOLOGY RECD BY: Jose Cordova ENTERED: 06/13/24 13:47 SP TYPE: COLON BX OTHR DR: Dr. Keyana Winchester MD Tissues: Rectum, NOS Procedures: Surgery Specimen Level IV HEADER OPERATION: Colonoscopy, polypectomy PRE-OP DIAGNOSIS: Colon cancer screening TISSUE SUBMITTED: Rectal polyp MICROSCOPIC DIAGNOSIS Rectal polyp, polypectomy: Fragments of tubular adenoma. CLAIR. 06/14/2024 MICROSCOPIC DESCRIPTION Slides are reviewed. GROSS DESCRIPTION Received in fixative is one container labeled with the patient's name and designated Rectal polyp. The specimen consists of multiple irregular fragments of light power soft tissue that in aggregate measure 1.5 x 0.5 x 0.2 cm. The specimen is totally submitted in one cassette. 06/13/2024 TC:1 CPT:22827
--- NOTE | 2024-06-13 09:24 | H&P.OPEN ---
[facility] - General General Date of Service: 06/13/24 HPI Narrative MIKE WOODS, is a 58 F who presents for a screening colonoscopy. Patient never had previous colonoscopy. Patient's mom and sister did have polyps unsure of size. Patient denies any chronic abdominal pain/nausea/vomiting/reflux. Patient does have bowel movements daily denies any blood. [facility] Medical History Loss of hearing Wears glasses Post-menopausal Arthritis Low iron High cholesterol Heartburn Non-smoker Leg cramps History of echocardiogram History of stress test Cardiology follow-up encounter Bilateral hip pain Colon cancer screening [facility] care COVID-19 Chest pain, unspecified Arrhythmia HLD (hyperlipidemia) Paroxysmal supraventricular tachycardia Nonrheumatic mitral valve prolapse Supraventricular tachycardia Home Medications ?Medication ?Instructions ?Recorded ?Last Taken ?Type ferrous sulfate 324 mg (65 mg 324 mg PO DAILY 09/24/19 05/15/24 History iron) tablet,delayed release cholecalciferol (vitamin D3) 125 125 mcg PO DAILY 10/02/20 Unknown History mcg (5,000 unit) capsule metoprolol succinate 25 mg 25 mg PO QDAY #90 tabs 12/27/23 06/13/24 07:15 Rx tablet,extended release 24 hr (Toprol XL) mecobalamin (vitamin B12) 1,000 1,000 mcg PO .QOD 04/19/24 Unknown History mcg chewable tablet Allergy/AdvReac Type Severity Reaction Status Date / Time No Known Allergies Allergy Verified 06/13/24 08:32 Family History Mother Cancer lung Colon polyps Father Cancer throat Sister Colon polyps Surgical History H/O sigmoidoscopy (~1999) Social History household members: spouse current occupational status: employed Smoking Status: Never smoker second hand exposure: No alcohol intake: never substance use type: does not use caffeine: No what type of physical activity do you participate in: walking frequency: 5-6 times per week seatbelt use: always do you feel safe at home: Yes additional social history: [place]- Disabled Past Medical/Surgical History Planned Operation Planned Operative Procedure(s): CSCOPE OA Previous Hospitalizations/Surgeries HX Hospitalizations: No Any Problems With Anesthesia: No (NO SURGERY HX) You/Your Family Experience Fever (Hyperthermia) With Anes: No Cholinesterase deficiency: No Cardiovascular Hx Hypertension: No Respiratory Hx Chronic Obstructive Pulmonary Disease (COPD): No Hx Asthma: No Hx Emphysema: No Hx Sleep Apnea: No Hx Respiratory Tract Infection/Cold (presently): No Do You Snore Loudly (louder than talking or can be heard): Yes Do You Often Feel Tired/ Fatigued/ Sleepy [place]ring Daytime?: Yes Has Anyone Observed You Stop Breathing During Sleep?: Yes Result (for STOP score): Positive Smoking Status: Never smoker Neurological Does patient have nerve stimulator: No Reproduction : No Miscellaneous Recent Exposure to Contagious Disease: No Allergies No Known Allergies Allergy (Verified 06/13/24 08:32) Discharge Is Pt Admitted From a Alf, or a Senior Living: No After D/C, Where Do you Plan to Go: Return Home Vital Signs Vital Signs Vital Signs: 06/13/24 08:33 06/13/24 08:33 Temperature 97.8 F Temperature Source Temporal Pulse Rate 65 Respiratory Rate 18 Respiratory Pattern Normal Blood Pressure 128/81 H Blood Pressure Mean 96 Blood Pressure Source Monitor Blood Pressure Position Sitting Blood Pressure Location Left Arm Pulse Ox 98 Oxygen Delivery Method Room Air Weight Weight: 187 lb 6.287 oz Body Mass Index (BMI) 30.2 Physical Exam Const alert, oriented x3 and no apparent distress HEENT normocephalic and head/scalp atraumatic Resp normal respiratory effort Cardio regular rate GI soft to palpation and non-tender; Negative for non-distended Palpation: Negative for guarding Extremity no clubbing, cyanosis or edema Skin no rashes or lesions noted Neuro CN's II-XII intact bilaterally Psych mental status grossly normal Assessment & Plan Assessment/Plan (1) Colon cancer screening: Surgery Risks - Colonoscopy I discussed with the patient the risks of the procedure: Yes Risks Include but are not Limited To: Risks include but are not limited to: Bleeding, perforation requiring further surgery, inability to complete colonoscopy requiring barium enema.
[2024-06-13 10:50] VITALS: BP 106/66; BP 128/81; PULSE 79; RESP 16; TEMP 36.2; O2SAT 93
--- NOTE | 2024-06-13 10:50 | OP.CCLET_ITS ---
06/13/2024 Keyana Winchester MD [address] [place] [address] [place] [address] Re : Colonoscopy procedure for June Aviles Dear Dr. Winchester This procedure was performed on Thursday, June 13, 2024. My impressions and recommendations are as follows: Impressions : - Diverticulosis in the sigmoid colon. - One less than 5 mm polyp in the rectum, removed with a hot snare. Resected and retrieved. - The examination was otherwise normal on direct and retroflexion views. Recommendations : - Discharge patient to home. - Resume previous diet. - Continue present medications. - Await pathology results. - Repeat colonoscopy in 3 - 5 years for surveillance based on pathology results. My findings are described in the full procedure note, which is enclosed. If I can be of further assistance, please feel free to contact me at Doctor phone number(s): , Work: . Sincerely, MD Shaina Acosta MD 06/13/2024 10:49:30 AM This report has been signed electronically.
--- NOTE | 2024-06-13 10:50 | OP.COLON_ITS ---
Patient Name: June Aviles Procedure Date: 06/13/2024 10:23 AM Date of : 1965 Age: 58 Procedure: Colonoscopy Indications: Screening for colorectal malignant neoplasm Providers: Shaina Hernández MD Medicines: Monitored Anesthesia Care Patient Profile: This is a 58 year old female. Last Colonoscopy: none. The patient's first colonoscopy is today. Complications: No immediate complications. Procedure: Pre-Anesthesia Assessment: - Prior to the procedure, a History and Physical was performed, and patient medications and allergies were reviewed. The patient's tolerance of previous anesthesia was also reviewed. The risks and benefits of the procedure and the sedation options and risks were discussed with the patient. All questions were answered, and informed consent was obtained. Prior Anticoagulants: The patient has taken no anticoagulant or antiplatelet agents. ASA Grade Assessment: Per anesthesia. After reviewing the risks and benefits, the patient was deemed in satisfactory condition to undergo the procedure. After I obtained informed consent, the scope was passed under direct vision. Throughout the procedure, the patient's blood pressure, pulse, and oxygen saturations were monitored continuously. The was introduced through the anus and advanced to the cecum, identified by the appendiceal orifice, ileocecal valve and palpation. The colonoscopy was performed without difficulty. The patient tolerated the procedure well. The quality of the bowel preparation was good. Scope In: 10:31:20 AM Scope Withdrawal Time 0 hours 7 minutes 1 second Scope Out: 10:44:13 AM Total Procedure Duration Time 0 hours 12 minutes 53 seconds Findings: The perianal and digital rectal examinations were normal. Multiple small-mouthed diverticula were found in the sigmoid colon. A less than 5 mm polyp was found in the rectum. The polyp was semi-pedunculated. The polyp was removed with a hot snare. Resection and retrieval were complete. The exam was otherwise without abnormality on direct and retroflexion views. Impression: - Diverticulosis in the sigmoid colon. - One less than 5 mm polyp in the rectum, removed with a hot snare. Resected and retrieved. - The examination was otherwise normal on direct and retroflexion views. Recommendation: - Discharge patient to home. - Resume previous diet. - Continue present medications. - Await pathology results. - Repeat colonoscopy in 3 - 5 years for surveillance based on pathology results. Procedure Code(s): --- Professional --- 05240, PT, Colonoscopy, flexible; with removal of tumor(s), polyp(s), or other lesion(s) by snare technique Diagnosis Code(s): --- Professional --- Z12.11, Encounter for screening for malignant neoplasm of colon D12.8, Benign neoplasm of rectum K57.30, Diverticulosis of large intestine without perforation or abscess without bleeding CPT copyright 2021 [employer]. All rights reserved. The codes documented in this report are preliminary and upon furniture sales associate review may be revised to meet current compliance requirements. MD Shaina Acosta MD 06/13/2024 10:49:30 AM This report has been signed electronically. Number of Addenda: 0 Note Initiated On: 06/13/2024 10:23 AM
--- NOTE | 2024-06-13 10:54 | PCM.POST.ANE ---
Anesthesia: Postop Eval I Current Vital Signs Temperature: 97.1 F Pulse Rate: 79 Blood Pressure: 106/66 Respiratory Rate: 16 Pulse Ox: 93 Oxygen Delivery Method: Room Air Assessment Airway patent: Yes Spontaneous unlabored respirations: Yes Mental status: Asleep nausea: No Vomiting: No Anesthesia Complication: No Fluid Hydration Crystalloid volume administer (ml): 40 Total IV fluid infused: 40 Progress Note Anesthesia document: Postop Eval 1 completed: Yes
[2024-06-13 10:55] VITALS: BP 106/66; BP 128/81; BP 97/71; PULSE 72; PULSE 79; RESP 16; TEMP 36.2; O2SAT 93
[2024-06-13 11:00] VITALS: BP 106/77; BP 128/81; PULSE 70; RESP 16; TEMP 36.6; O2SAT 94
[2024-06-13 11:14] VITALS: BP 128/81
--- NOTE | 2024-06-13 16:41 | PCM.POSTANE2 ---
Anesthesia Postop Eval I Sum Postop Eval Completion status Anesthesia document: Postop Eval 1 completed: Yes Anesthesia Postop Eval I Summary Anesthesia Postop Eval I Summary: Anesthesia Postop Eval I: Assessment Summary Airway patent Yes 06/13/24 10:55 [email or web address] Spontaneous unlabored Yes 06/13/24 10:55 [email or web address] respirations Mental status Asleep 06/13/24 10:55 [email or web address] nausea No 06/13/24 10:55 [email or web address] Vomiting No 06/13/24 10:55 [email or web address] Anesthesia Postop Eval I: Fluid Summary Crystalloid volume administer 40 06/13/24 10:55 [email or web address] (ml) Colloids volume administered ( ml) Blood Product volume administered (ml) Total IV fluid infused 40 06/13/24 10:55 [email or web address] Anesthesia Postop Eval I: Summary Notes Anesthesia Complication No 06/13/24 10:55 [email or web address] Anesthesia Complication Comment: Post-operative progress note Anesthesia: Postop Eval II Evaluation Mental status: Awake and Calm Pain Level: 0 nausea: No Vomiting: No
== END 2024-06-13 11:30 | disposition home or self-care (01) ==
LOC: EN 08:09 → AC 08:10
PROVIDERS: PCP Internal Medicine; Referring Provider Surgery; Visit Provider Surgery
PROC: 0DJD8ZZ Inspection of Lower Intestinal Tract, Via Natural or Artificial Opening Endoscopic (ICD-10-PCS; CPT 45378; principal; 2024-06-13 09:10)
DX: Z12.11 Encounter for screening for malignant neoplasm of colon (principal); K57.30 Diverticulosis of large intestine without perforation or abscess without bleeding; D12.8 Benign neoplasm of rectum; E78.00 Pure hypercholesterolemia, unspecified; Z79.899 Other long term (current) drug therapy
CPT/HCPCS: 45385; 88305; J2405

== ENCOUNTER 2024-12-03 11:30 | Outpatient (RCR) | payer OTHER, SELFPAY ==
--- NOTE | 2024-10-02 08:58 | HP.PTEVAL_ITS ---
Patient's Visit Information Visit Information Visit Information: MIKE WOODS is a 59 year old F referred to Physical Therapy by Dr. Foster Brunner DO with a diagnosis of R IT band synd, great troch bursitis. Date of Evaluation: 10/02/24 Physical Therapist: HERMANN Chavez Visit Plan Frequency: 2x /Week Duration: 6 Weeks Plan: 2X/ week for 8 weeks for R IT band foam rolling, manual stretching in L S/L stabilizing trunk SB, supine strap IT band stretching, Piriformis stretching, Hip strengthening with possible US if needed with HEP HEP: supine R IT band stretch with green strap Subjective Subjective: In Apr she fell and landed on R side and was more concerned with her hand. She did not feel anything on her side but her entire R thigh was black and blue. They have recumbent Trikes that they ride and were out twice a week in May and that was more than in the summer and everything felt fine. There was an issue that she had to push really hard and felt it in her Quad. In Jun she started working out but got a cold and stopped working out and just before she was laying on the L side and picked up her R leg to turn and felt a sharp pain and after that she continued to feel discomfort. It felt better with walking and started stretching. But everything she was in bed and tried to move she would feel it. The discomfort is always there. She saw Dr Brunner. She has no back pain. She has no N&T. Stairs: increase pain. She is on Prednisone now and the pain is there but she is able to do stairs without pulling self up etc. She has no pain getting up out of a chair. She is able to get up from the floor with some pain. Mostly pain with walking, stairs, and rolling over in bed. If she were to step wrong on the R foot she would feel it in her R hip and knee. She can lay on R side but gets uncomfortable. She has been in recliner for now. She did not want to do injection right away. She is taking Prednisone and almost done with it. She can not take anti- inflammatories. Pain R hip pain: Pain Intensity (Out of 10): 1 R knee pain: Pain Intensity (Out of 10): 3 Objective Objective: Gait: R hip flex 13 and L 16.1 R knee ext 25.2 and L 24.8 R knee flex 7.1 and L 8.9 R hip abd 9.1 and L 9.9 R hip Ext 10.6 and L 9.8 Pt has good B piriformis length but she does feel a little bit of pain/ deep stretch at end range Pt has decreased R IT band length and pain with end range stretching in S/L (manual due to increase trunk ROM) and in supine with a strap. She did not feel the stretch or pain as much in standing against the wall. Manual foam rolling in R sidelying she had tender spots along the R piriformis and R IT band Balance/Special Test Scores Lower Extremity Functional Score: 45 Goals Goal 1:: I HEP Goal Time Frame: 6-8 Weeks Goal 2:: Increase R IT band length and no pain with end range stretching Goal Time Frame: 6-8 Weeks Goal 3:: Be able to roll over in bed without having to keep knees together Goal Time Frame: 6-8 Weeks Goal 4:: Be able to go up and down steps without having pain Goal Time Frame: 6-8 Weeks Rehabilitation Potential Rehabilitation Potential: Good Anticipated Interventions Patient/Client Instruction: Educate patient on: Condition and Plan of Care For the Purpose of:: To decrease pain, To decrease swelling/inflammation, To increase ROM, To improve nutrient delivery to tissue, To improve muscle perfo rmance and motor function, To improve ability to perform ADL's, To increase tolerance to activity/condition/position, To improve performance and independence with ADL's, To decrease level of supervision to perform tasks, To improve ability of physical actions for home/community/work/leisure, To improve gait and locomotor functions, To improve health of tissue, To decrease soft tissue restriction and To increase flexibility/ROM Therapeutic Exercise to Include: Strength training, Postural training, Flexibilty training, Gait and locomotor training, Passive ROM, Active ROM and Dynamic Lumbar Stabilization For the Purpose of:: To decrease pain, To decrease swelling/inflammation, To increase ROM, To improve muscle performance and motor function, To improve ability to perform ADL's, To increase tolerance to activity/condition/position, To improve performance and independence with ADL's, To decrease level of supervision to perform tasks, To improve ability of physical actions for home/community/work/leisure, To improve gait and locomotor functions, To improve health of tissue, To decrease soft tissue restriction and To increase flexibility/ROM Functional Training to Include: Gait training For the Purpose of:: To improve gait and locomotor functions Manual Therapy Techniques to Include: Passive ROM and Soft tissue mobilization For the Purpose of:: To decrease pain, To increase ROM, To improve nutrient delivery to tissue, To improve muscle performance and motor function, To improve ability to perform ADL's, To increase tolerance to activity/condition/position, To improve performance and independence with ADL's, To decrease level of superv ision to perform tasks, To improve ability of physical actions for home/community/work/leisure, To improve gait and locomotor functions, To improve health of tissue, To decrease soft tissue restriction and To increase flexibility/ROM Cryotherapy (ice pack, ice massage): Yes Thermo therapy (hot pack): Yes Ultrasound (thermal/non thermal): Yes For the Purpose of:: To decrease pain, To increase ROM, To improve nutrient delivery to tissue, To improve muscle performance and motor function, To improve ability to perform ADL's, To increase tolerance to activity/condition/position, To improve gait and locomotor functions and To improve health of tissue Text: Thank you for the opportunity to evaluate your patient. For Medicare and Medicare HMO plans, please review the plan of care and approve it. It will need to be FAXED BACK to us at [phone] for Medicare purposes. For Medicare only, by signing this I certify the plan of care. Please let me know if there are questions or concerns regarding this plan of care. Physician Sign ature: Date:
--- NOTE | 2024-11-01 12:32 | HP.PTREVAL_ITS ---
Re-Evaluation Intro: Dr. Foster Brunner, DO, It has been my pleasure to treat MIKE WOODS over the last 9 visits for R IT band synd, great troch bursitis. Please see the progress note below for an update on the physical therapy plan of care! Subjective Subjective: She can walk the steps easier and she is walking a little faster. She has pain when she lays in bed when lays on B sides. She has back stiffness at times. She is doing her stretches mostly every day. Objective Objective/Function: Pt has full trunk AROM...very flexible Pt overall very flexible Pt can compensate with her trunk easily Plan Plan Plan: Add some core stability and continue with stretching and hip strength 2X/ week for 8 weeks for R IT band foam rolling, manual stretching in L S/L stabilizing trunk SB, supine strap IT band stretching, Piriformis stretching, Hip strengthening with possible US if needed with HEP HEP: supine R IT band stretch with green strap Balance/Gait/Functional tests Balance/Special Test Scores Lower Extremity Functional Score: 48 Goals Goals Goal 1:: I HEP Goal Time Frame: 6-8 Weeks Goal 2:: Increase R IT band length and no pain with end range stretching Goal Time Frame: 6-8 Weeks Goal Progress: Progressing Goal 3:: Be able to roll over in bed without having to keep knees together Goal Time Frame: 6-8 Weeks Goal 4:: Be able to go up and down steps without having pain Goal Time Frame: 6-8 Weeks Goal Progress: Progressing Anticipated Interventions Anticipated Interventions Patient/Client Instruction: Educate patient on: Condition and Plan of Care For the Purpose of:: To decrease pain, To decrease swelling/inflammation, To increase ROM, To improve nutrient delivery to tissue, To improve muscle performance and motor function, To improve ability to perform ADL's, To increase tolerance to activity/condition/position, To improve performance and independe nce with ADL's, To decrease level of supervision to perform tasks, To improve ability of physical actions for home/community/work/leisure, To improve gait and locomotor functions, To improve health of tissue, To decrease soft tissue restriction and To increase flexibility/ROM Therapeutic Exercise to Include: Strength training, Postural training, Flexibilty training, Gait and locomotor training, Passive ROM, Active ROM and Dynamic Lumbar Stabilization For the Purpose of:: To decrease pain, To decrease swelling/inflammation, To increase ROM, To improve muscle performance and motor function, To improve ability to perform ADL's, To increase tolerance to activity/condition/position, To improve performance and independence with ADL's, To decrease level of supervision to perform tasks, To improve ability of physical actions for home/community/work/leisure, To improve gait and locomotor functions, To improve health of tissue, To decrease soft tissue restriction and To increase flexibility/ROM Functional Training to Include: Gait training For the Purpose of:: To improve gait and locomotor functions Manual Therapy Techniques to Include: Passive ROM and Soft tissue mobilization For the Purpose of:: To decrease pain, To increase ROM, To improve nutrient delivery to tissue, To improve muscle performance and motor function, To improve ability to perform ADL's, To increase tolerance to activity/condition/position, To improve performance and independence with ADL's, To decrease level of supervision to perform tasks, To improve ability of physical actions for home/community/work/leisure, To improve gait and locomotor functions, To improve health of tissue, To decrease soft tissue restriction and To increase flexibility/ROM Cryotherapy (ice pack, ice massage): Yes Thermo therapy (hot pack): Yes Ultrasound (thermal/non thermal): Yes For the Purpose of:: To decrease pain, To increase ROM, To improve nutrient delivery to tissue, To improve muscle performance and motor function, To improve ability to perform ADL's, To increase tolerance to activity/condition/position, To improve gait and locomotor functions and To improve health of tissue Re-Evaluation Ending Re-evaluation ending: Please do not hesitate to contact me at [phone] by phone or if you have questions or concerns regarding this new plan of care! Sincerely, Rachel Jarrett, MPT
--- NOTE | 2024-12-03 11:44 | HP.PTDCSUM ---
Discharge Summary D/C summary: It has been my pleasure to treat MIKE WOODS referred by Dr. Foster Brunner DO, with the diagnosis of R IT band synd, great troch bursitis for a total of 17 visit(s). Discharge Date: 12/03/24 Please see the following information for a summary of their discharge status. Subjective Subjective: Walking 50% better, stairs 90% better, rolling over in bed still painful (better, not 10/10 but still there). She is ready to continue to do some of the exercises at home. Pain R hip pain: Pain Intensity (Out of 10): 3 R knee pain: Pain Intensity (Out of 10): 2 Overall Improvement % Improvement: 70 Objective Objective/Function: Good B piriformis and IT band length (a little tight at end range on the R). Pt is able to go up and down the steps recip without a hand rail without having to pull self up or weakness present. Gait: normal with no antalgic gait Goals Goal 1:: I HEP Goal Progress: Goal Met Goal 2:: Increase R IT band length and no pain with end range stretching Goal Progress: Progressing Goal 3:: Be able to roll over in bed without having to keep knees together Goal Progress: Not Progressing Goal 4:: Be able to go up and down steps without having pain Goal Progress: Goal Met Plan Plan: DC PT to HEP D/C Information Discharge Comments: DC PT to HEP d/c sentence: If there are questions or concerns regarding this patient's physical therapy, please feel free to call me at [phone]. Thank you for the referral of this patient. Sincerely, Rachel Jarrett, MPT Balance/Gait/Functional tests Balance/Special Test Scores Lower Extremity Functional Score: 50 Improvement % Improvement: 70
== END 2024-12-03 19:00 | disposition home or self-care (01) ==
LOC: PT 11:30
PROVIDERS: PCP Internal Medicine; Referring Provider Orthopaedic Surgery; Visit Provider Orthopaedic Surgery
DX: M76.31 Iliotibial band syndrome, right leg (principal); M70.61 Trochanteric bursitis, right hip
CPT/HCPCS: 97035; 97110; 97140; 97161; 97530

== ENCOUNTER → 2024-12-26 | Outpatient (CLI) | payer OTHER, SELFPAY ==
[2024-12-26 12:55] LABS: Absolute Lymphocyte Count 1.73 X10^3/uL (0.83-4.51); Absolute Neutrophil Count 2.7 X10^3/uL (2.0-7.7); Basophil# 0.05 X10^3/uL; Eosinophil# 0.11 X10^3/uL; Eosinophils% 2.2 % (0-5); Hemoglobin 13.7 g/dL (12.0-15.0); Lymphocyte # 1.73 X10^3/ul (0.83-4.51); Mean Corp Hgb Conc 33.4 g/dL (32-36); Mean Corpuscular Volume 89.9 fL (81-99); Mean Platelet Vol. 11.4 fl (6.2-12.0); Monocyte# 0.33 X10^3/uL; Monocyte% 6.7 % (0-10); NRBC Flagged by Analyzer 0 % (0-5); Neutrophil # 2.71 X10^3/uL (2.7-7.7); Neutrophil % 54.9 % (47-70); Platelet Count 240 K/mm3 (150-450); RBC Distribution Width CV 13.2 % (11.6-14.6); RBC Distribution Width SD 43.2 fl (35.1-43.9); Red Blood Count 4.56 M/mm3 (4.2-5.4); White Blood Count 4.9 K/mm3 (4.4-11.0)
[2024-12-26 13:43] LABS: ALB/GLOB Ratio 1.6 RATIO (0.9-2.4); AST(SGOT) 18 U/L (<=31); Alanine Aminotransfer ALT/SGPT 10 U/L (<=34); Albumin, Serum 4.3 g/dL (3.4-4.8); Alkaline Phosphatase 96 U/L (35-104); Anion Gap 10 (5-15); BUN 14 mg/dL (4-19); BUN/Creat Ratio 16.5 RATIO (10-20); Calcium,Total 10.2 mg/dL (7.6-11.0); Carbon Dioxide 24.3 mmol/L (21.0-32.0); Chloride 105 mmol/L (98-108); Cholesterol 232 mg/dL (<=200); Creatinine, Serum 0.82 mg/dL (0.70-1.20); EST Glomerular Filtration Rate 81 (>60); Globulin 2.8 g/dL (2.2-4.2); Glucose 100 mg/dL (70-99); High Density Lipoprotein 63 mg/dL; Low Density Lipoprotein Calc. 151 mg/dL; Protein, Total 7.1 g/dL (5.9-8.4); Sodium Level 140 mmol/L (133-145); Total Bilirubin 0.46 mg/dL (0.00-1.30); Triglycerides 90 mg/dL; Very Low Density Lipoprotein 18 mg/dL (5-40); cholesterol:hdl ratio screen 3.68
[2024-12-27 16:16] LABS: Hemoglobin A1c 5.6 % (<=5.6)
== END | disposition home or self-care (01) ==
LOC: BIMLAB 09:23
PROVIDERS: PCP Internal Medicine; Referring Provider Internal Medicine; Visit Provider Internal Medicine
DX: Z00.00 Encounter for general adult medical examination without abnormal findings (principal); R73.9 Hyperglycemia, unspecified
CPT/HCPCS: 36415; 80053; 80061; 83036; 85025

== ENCOUNTER → 2025-01-08 | Outpatient (CLI) | payer OTHER, SELFPAY ==
--- NOTE | 2025-01-08 08:15 | BI_ITS ---
EXAM: SCRN MAMM (CAD)W/BRONSON BILAT DATE: 01/08/2025 CLINICAL HISTORY: F, Age 59 y/o , BREAST CANCER SCREENING No family history. BREAST CANCER RISK ASSESSMENT: Not assessed TECHNIQUE: Bilateral screening digital breast tomosynthesis with 2D and 3D images. Computer aided detection. COMPARISON: Prior exam(s) dated August 26, 2021.. FINDINGS: TISSUE DENSITY: The breast tissue is composed of scattered area of fibroglandular density. Bilateral Breast Mammographic Findings: No significant masses, calcifications or other abnormalities are identified. No suspicious masses, areas of developing architectural distortion, or suspicious calcifications. There has been no significant interval change. BI/SCRN MAMM (CAD)W/BRONSON BILAT IMPRESSION: OVERALL FINAL ASSESSMENT: BIRADS 1 NEGATIVE RECOMMENDATION: Routine annual follow-up in 1 Year A letter with findings and recommendations will be mailed to the patient. Reading Location: [place] [id number]
--- NOTE | 2025-01-08 08:27 | BD_ITS ---
PROCEDURE: DEXA BONE DENSITY STUDY 01/08/2025 REASON FOR EXAM: POST MENOPAUSAL F, age 59 y/o . Postmenopausal. TECHNIQUE: DXA scan of sites with data reported below. REFERENCE LINKS: ISCD Adult Positions COMPARISON: None FINDINGS: BMD and T-SCORES Lumbar spine: 0.864 g/cm2, T-score -1.7 Levels: L1 through L4 Left femoral neck: 0.726 g/cm2, T-score -1.1 Femoral neck comparison data not recommended for monitoring change. Left total hip: 0.830 g/cm2, T-score -0.9 Right femoral neck: 0.644 g/cm2, T-score -1.8 Femoral neck comparison data not recommended for monitoring change. Right total hip: 0.779 g/cm2, T-score -1.3 The World Health Organization has defined the following categories based on bone density: Normal bone density: T-score equal to or greater than -1.0 Osteopenia: T-score between -1.0 and -2.5 Osteoporosis: T-score equal to or less than -2.5 The patient does meet the pharmacological treatment recommendations for prevention of osteoporosis. BD/Dexa Bone Density Study IMPRESSION: OSTEOPENIA. Recommend follow-up as clinically warranted. Reading Location: [place] [id number]
== END | disposition home or self-care (01) ==
LOC: OPBD 08:09
PROVIDERS: PCP Internal Medicine; Referring Provider Internal Medicine; Visit Provider Internal Medicine
DX: Z12.31 Encounter for screening mammogram for malignant neoplasm of breast (principal); Z78.0 Asymptomatic menopausal state; M85.80 Other specified disorders of bone density and structure, unspecified site
CPT/HCPCS: 77063; 77067; 77080

== ENCOUNTER → 2025-05-13 | Outpatient (CLI) | payer OTHER, SELFPAY | END | disposition home or self-care (01) | PROVIDERS: PCP Internal Medicine; Referring Provider Nurse Practitioner Women's Health; Visit Provider Nurse Practitioner Women's Health | DX: Z12.4 Encounter for screening for malignant neoplasm of cervix (principal) | CPT/HCPCS: 87624; 88175; G0145 ==

== ENCOUNTER → 2025-05-28 | Outpatient (CLI) | payer OTHER, SELFPAY ==
--- NOTE | 2025-05-28 14:12 | US_ITS ---
PROCEDURE: PELVIC W/ TRANSVAGINAL 05/28/2025 REASON FOR EXAM: PAIN, HX FIBROIDS TECHNIQUE: Procedure Code: [id number] Modality: US Procedure: PELVIC W/ TRANSVAGINAL COMPARISON: None FINDINGS: Patient is postmenopausal. Measurements: Uterus: 7.7 cm x 4.2 cm x 3.1 cm with a volume of 53 mL Endometrial Thickness: 3 mm. It is hyperechoic. Focal calcification is seen in the region of the uterine cervix. Right Ovary: Not visualized. Left Ovary: 1.1 cm x 1.1 cm x 0.8 cm with a volume of 0.5 mL. Uterus: There is a 4.8 cm 4.6 cm 5.7 cm fibroid on the left side of the fundal portion. There is a 2.1 cm 1.5 cm 1.5 cm fibroid in the lower uterine segment. Endometrium: 3 mm. Right ovary: Not visualized. Left ovary: Normal size and echotexture. Other: Tubular structure is seen in the left adnexa. This may represent a prominent dilated fallopian tube. US/Pelvic w/ Transvaginal IMPRESSION: Fibroid uterus. Tubular structure in the left adnexa suggestive of possible dilated fallopian t ube. Reading Location: [facility]
== END | disposition home or self-care (01) ==
LOC: US 14:02
PROVIDERS: PCP Internal Medicine; Referring Provider Nurse Practitioner Women's Health; Visit Provider Nurse Practitioner Women's Health
DX: R10.20 Pelvic and perineal pain unspecified side (principal); D25.9 Leiomyoma of uterus, unspecified
CPT/HCPCS: 76830; 76856